=== PATIENT | female | born 1985 | race Caucasian/White ===

== ENCOUNTER 2018-07-10 21:42 | Emergency (ER) | payer SELFPAY ==
[~2018-07-10] VITALS: Ht 134.6 cm; Wt 63.5 kg
[2018-07-10 21:44] VITALS: BP 114/59
== END 2018-07-11 02:30 | disposition left against medical advice (07) ==
LOC: ER 21:42
DX: R10.9 Unspecified abdominal pain (principal); Z53.21 Procedure and treatment not carried out due to patient leaving prior to being seen by health care provider